=== PATIENT | male | born 1990 | race Caucasian/White ===

== ENCOUNTER 2020-12-27 14:29 | Emergency (ER) | payer OTHER ==
[~2020-12-27] VITALS: Ht 157.5 cm; Wt 104.5 kg
[2020-12-27 14:38] VITALS: BP 123/68
--- NOTE | 2020-12-27 15:14 | PHYS DOC ---
Past History Past Surgical History: No Surgical History (TONO PETERSON APRN) Alcohol Use: None (TONO PETERSON APRN) General Adult EDM: Chief Complaint: KNEE INJURY HPI: HPI: Patient is a 30-year-old male who presents to the emergency department for left knee pain. Patient reports that he was playing flag football when he stepped into a hole and twisted his knee. He states that he felt a pop. He rates his pain 4 out of 10. Worse with movement. He is used ice and heat at home without any relief. Patient is able to bear weight and ambulate with steady gait. He denies any decreased range of motion, wounds or decreased sensation to his extremity. (TONO PETERSON APRN) Review of Systems: Review of Systems: Musculoskeletal: See HPI Integument: HPI Neurologic: See HPI (TONO PETERSON APRN) Allergies: Allergies: Allergies Coded Allergies Type Severity Reaction Last Updated Verified No Known Drug Allergies 12/27/20 No (TONO PETERSON APRN) Physical Exam: PE: Constitutional: Well developed, well nourished, no acute distress, non-toxic appearance. [] HENT: Normocephalic, atraumatic, bilateral external ears normal, oropharynx moist, no oral exudates, nose normal. [] Eyes: PERRL, EOMI, conjunctiva normal, no discharge. [] Neck: Normal range of motion, no stridor Cardiovascular: Normal peripheral perfusion Lungs & Thorax: Normal work of breathing, no tachypnea Abdomen: soft and flat Skin: Warm, dry, no erythema, no rash. [] Back: Normal range of motion Extremities: No tenderness, no cyanosis, no clubbing, ROM intact, no edema. [] Left knee: Mild swelling noted to left knee, no obvious deformity, full extension, flexion limited due to pain, neuro intact, no wounds Neurologic: Alert and oriented X 3, normal motor function, normal sensory function, no focal deficits noted. [] Psychologic: Affect normal, judgement normal, mood normal. [] (TONO PETERSON APRN) Current Patient Data: Vital Signs: Vital Signs Date Time Temp Pulse Resp B/P (MAP) Pulse Ox O2 Delivery O2 Flow Rate FiO2 12/27/20 14:38 98.3 67 16 123/68 (86) 97 Room Air (TONO PETERSON APRN) EKG: EKG: [] (TONO PETERSON APRN) Radiology/Procedures: Radiology/Procedures: []PROCEDURE: KNEE LEFT 3V XR KNEE _3 VIEWS_LT Clinical indications: Reason: KNEE INJURY PLAYING FOOTBALL /pain. Findings: No acute fracture or dislocation or osteolytic process is evident. IMPRESSION: No acute osseous abnormality is evident. Electronically signed by: Sandrita Lincoln MD (12/27/2020 3:18 PM) [id number] DICTATED AND SIGNED BY: SANDRITA LINCOLN MD DATE: 12/27/201517 CC: TONO PETERSON APRN; PCP,UNKNOWN ~MTH0 0 (TONO PETERSON APRN) Heart Score: C/O Chest Pain: N/A Risk Factors: Risk Factors: DM, Current or recent (<one month) smoker, HTN, HLP, family history of CAD, obesity. Risk Scores: Score 0 - 3: 2.5% MACE over next 6 weeks - Discharge Home Score 4 - 6: 20.3% MACE over next 6 weeks - Admit for Clinical Observation Score 7 - 10: 72.7% MACE over next 6 weeks - Early Invasive Strategies (TONO PETERSON APRN) Course & Med Decision Making: Course & Med Decision Making Pertinent Labs and Imaging studies reviewed. (See chart for details) [] Presents to the emergency department for left knee pain after injuring it while playing flag football. An x-ray was performed that showed no acute findings. Patient treated for his pain in the emergency department. Patient had his knee in a knee brace he can continue to wear this and he can also apply ice. Elevation will help with swelling. Patient advised to follow-up with his primary care provider. I discussed with patient all findings and diagnostic testing as well as the need to follow-up with PCP for further evaluation and treatment or return to the ER if any new or worsening symptoms. Strict return precautions were also discussed at length. Patient voiced understanding and agreement with the plan. Patient is hemodynamically stable at the time of disposition. (TONO PETERSON APRN) Dragon Disclaimer: Dragon Disclaimer: This electronic medical record was generated, in whole or in part, using a voice recognition dictation system. (TONO PETERSON APRN) Attending Co-Sign The patient was seen and interviewed as well as examined at the bedside. The chart was reviewed. The case was discussed. Agree with the plan of care. (JERICHO GAN DO) Departure Departure: Impression: Primary Impression: Knee sprain Qualified Codes: S83.92XA - Sprain of unspecified site of left knee, initial encounter Disposition: HOME / SELF CARE / HOMELESS Condition: GOOD Referrals: PCP,UNKNOWN (PCP) Patient Instructions: RICE - Routine Care for Injuries Additional Instructions: You were seen in the emergency department today for a knee injury. An x-ray was performed that was negative for any acute findings. Continue to wear your knee brace. You can also utilize the rice protocol which includes rest, ice, compression and elevation this will help with swelling and pain. You can take Tylenol and ibuprofen at home for pain. Follow-up with your primary care provider within the week. Return to the emergency department if you develop worsening of your pain, inability to bear weight or ambulate, decreased range of motion or decreased sensation in your extremity. EMERGENCY DEPARTMENT GENERAL DISCHARGE INSTRUCTIONS Thank you for coming to [facility] (ED) today and trusting us with you care. We trust that you had a positivie experience in our Emergency Department. If you wish to speak to the department management, you may call the director at [phone]. YOUR FOLLOW UP INSTRUCTIONS ARE FOLLOWS: 1. Do you have a private Doctor? If you do not have a private doctor, please ask for a resource list of physicians or clinics that may be able to assist you with follow up care. 2. The Emergency Physician has interpreted your x-rays. The X-Ray specialist will also review them. If there is a change in the findings, you will be notified in 48 hours when at all possible. 3. A lab test or culture has been done, your results will be reviewed and you will be notified if you need a change in treatment. ADDITIONAL INSTRUCTIONS AND INFORMATION: 1. Your care today has been supervised by a physician who is specially trained in emergency care. Many problems require more than one evaluation for a complete diagnosis and treatment. We recommend that you schedule your follow up appointment as recommended to ensure complete treatment of you illness or injury. If you are unable to obtain follow up care and continue to have a problem, or if your condition worsens, we recommend that you return to the ED. 2. We are not able to safely determine your condition over the phone nor are we able to give sound medical advice over the phone. For these safety reasons, if you call for medical advice we will ask you to come to the ED for further evaluation. 3. If you have any questions regarding these discharge instructions please call the ED at [phone]. SAFETY INFORMATION: In the interest of safety, wellness, and injury prevention; we encourage you to wear your sealbelt, if you smoke; quite smoking, and we encourage family to use a protective helmet for bicycling and other sporting events that present an increased risk for head injury. IF YOUR SYMPTOMS WORSEN OR NEW SYMPTOMS DEVELOP, OR YOU HAVE CONCERNS ABOUT YOUR CONDITION; OR IF YOUR CONDITION WORSENS WHILE YOU ARE WAITING FOR YOUR FOLLOW UP APPOINTMENT; EITHER CONTACT YOUR PRIMARY CARE DOCTOR, THE PHYSICIAN WHOSE NAME AND NUMBER YOU WERE GIVEN, OR RETURN TO THE ED IMMEDIATELY. TONO PETERSON APRN Dec 27, 2020 15:14 JERICHO GAN DO Dec 27, 2020 17:36
--- NOTE | 2020-12-27 15:21 | RAD ---
XR KNEE _3 VIEWS_LT Clinical indications: Reason: KNEE INJURY PLAYING FOOTBALL /pain. Findings: No acute fracture or dislocation or osteolytic process is evident. IMPRESSION: No acute osseous abnormality is evident. Electronically signed by: Polo Lincoln MD (12/27/2020 3:18 PM) [id number]
[2020-12-27] MEDS ORDERED: HYDROcodone/APAP 5/325MG 1 TAB TABLET PO ONE (15:30)
== END 2020-12-27 15:44 | disposition home or self-care (01) ==
LOC: ER 14:29
DX: S83.92XA Sprain of unspecified site of left knee, initial encounter (principal); X50.9XXA Other and unspecified overexertion or strenuous movements or postures, initial encounter; Y93.61 Activity, american tackle football; Y92.89 Other specified places as the place of occurrence of the external cause; Y99.8 Other external cause status
CPT/HCPCS: 73562; 99283